=== PATIENT | male | born 1970 | race Caucasian/White ===

== ENCOUNTER 2019-02-17 13:21 | Emergency (ER) | payer OTHER ==
--- NOTE | 2019-02-17 13:44 | Emergency Department Record ---
History of Present Illness - General Chief Complaint: Numbness Stated Complaint: LT FACE NUMBNESS Time Seen by Provider: 02/17/19 13:38 Source: Patient, Family () Mode of Arrival: Ambulatory Limitations: No limitations - History of Present Illness Initial Comments: Pt woke with left facial numbness and droop to left eye and mouth. No JACK, no weakness to arms/legs, no change in vision or speech. Pt with hx MS on meds. No recent illness or injury. - Related Data Home Medications: Home Medications Medication Instructions Recorded Confirmed Last Taken Oxcarbazepine [Oxtellar Xr] 1,800 mg PO QPM 02/17/19 02/17/19 02/16/19 Previous Rx's Medication Instructions Recorded Famciclovir 500 mg PO BID 10 Days #20 tablet 02/17/19 Prednisone [Prednisone 20Mg] 20 mg PO DAILY 6 Days #12 tab 02/17/19 Allergies/Adverse Reactions: Allergies Allergy/AdvReac Type Severity Reaction Status Date / Time No Known Drug Allergies Allergy Verified 02/17/19 13:26 Review of Systems Constitutional: Denies: Chills, Fever Eyes: Reports: As per HPI. Denies: Photophobia, Vision change ENT: Denies: Congestion, Dental pain, Ear pain, Hearing loss, Throat pain Respiratory: Denies: Cough, Dyspnea Cardiovascular: Denies: Arrhythmia, Chest pain Endocrine: Denies: Fatigue Gastrointestinal: Denies: Abdominal pain, Diarrhea, Nausea, Vomiting Musculoskeletal: Denies: Arthralgia Skin: Denies: Bruising, Rash Neurological: Reports: As per HPI. Denies: Confusion, Headache, Numbness, Weakness Psychiatric: Denies: Anxiety Hematological/Lymphatic: Denies: Anemia Physical Exam - General General Appearance: Alert, Oriented x3, Cooperative, No acute distress - Head Head exam: Normal inspection - Eye Eye exam: PERRL, EOMI. negative: Conjunctival injection (lower lid weakness closing against resistance. ), Nystagmus - ENT ENT exam: Mucous membranes moist, Normal orophraynx, TM's normal bilaterally Nasal Exam: Normal inspection Mouth exam: negative: Drooling (some drooping of lateral left mouth. ) - Neck Neck exam: Normal inspection, Full ROM. negative: Lymphadenopathy, Tenderness - Respiratory Respiratory exam: Normal lung sounds bilaterally. negative: Rhonchi - Cardiovascular Cardiovascular Exam: Regular rate, Normal rhythm, Normal heart sounds - GI/Abdominal GI/Abdominal exam: Soft. negative: Tenderness - Extremities Extremities exam: Normal inspection - Back Back exam: Reports: Normal inspection. Denies: Paraspinal tenderness - Neurological Neurological exam: Alert, Normal gait, Oriented X3 (left facial decrease sensation to testing forenead to lower face. Noted facial weakness to left forehead, and lower face. ) - Psychiatric Psychiatric exam: Normal affect, Normal mood - Skin Skin exam: Normal color. negative: Rash Course - Reevaluation(s) Reevaluation #1: 02/17/19 13:54 Seen and discussed findings of Carey's Palsy. Pt with hx MS. On meds. plan outlined and discussed. Steroids and "plus/minus" but pt chooses. Disposition Disposition: Discharge Clinical Impression: Carey's palsy Disposition: Home, Self-Care Condition: (1) Good Instructions: Carey Palsy (ED) Additional Instructions: Do not sleep in contacts. Use eye ointment every night and tape eye closed (left) Take all meds as instructed. See Dr. Marin in 3-4 days. Return to the ED as needed. Prescriptions: Famciclovir 500 mg PO BID 10 Days #20 tablet Prednisone [Prednisone 20Mg] 20 mg PO DAILY 6 Days #12 tab Forms: Patient Portal Access Time of Disposition: 13:44 Quality - Quality Measures Quality Measures: N/A - Blood Pressure Screening Does Patient Have Any of the Following: No Blood Pressure Classification: Hypertensive Reading Systolic Measurement: 129 Diastolic Measurement: 93 Screening for High Blood Pressure: < Pre-Hypertensive BP, F/U Documented > [G8950] Pre-Hypertensive Follow-up Interventions: Follow-up with rescreen every year.
== END 2019-02-17 13:52 | disposition home or self-care (01) ==
LOC: ER 13:21
DX: G51.0 Bell's palsy (principal)
CPT/HCPCS: 99282